=== PATIENT | male | born 1960 | race Caucasian/White ===

== ENCOUNTER → 2018-12-07 14:25 | Outpatient (CLI) | payer MEDICARE, SELFPAY ==
[2018-12-07 15:33] LABS: Absolute Lymphocyte Count 1.32 X10^3/ul (0.83-4.51); Absolute Neutrophil Count 1.6 X10^3/uL (2.0-7.7); Basophil# 0.03 X10^3/uL; Basophil% 0.9 % (0-1); Eosinophil# 0.05 X10^3/uL; Eosinophils% 1.5 % (0-5); Hemoglobin 12.9 g/dl (13.0-16.5); Lymphocyte # 1.32 X10^3/ul (4.0); Lymphocyte % 39.2 % (19-41); Mean Corp Hgb Conc 33.1 g/gl (32-36); Mean Corpuscular Hgb 29.7 pg (27.0-32.0); Mean Corpuscular Volume 89.7 fL (80-94); Mean Platelet Vol. 10.5 fl (6.2-12.0); Monocyte% 11.9 % (0-10); Neutrophil # 1.57 X10^3/uL (2.7-7.7); Neutrophil % 46.5 % (47-70); Platelet Count 216 K/mm3 (150-450); RBC Distribution Width CV 13.4 % (11.6-14.6); RBC Distribution Width SD 43.7 fl (35.1-43.9); Red Blood Count 4.35 M/mm3 (4.6-6.2); White Blood Count 3.4 K/mm3 (4.4-11.0)
[2018-12-07 15:36] LABS: POSITIVE COUNT NO; POSITIVE DIFFERENTIAL NO; POSITIVE MORPHOLOGY NO
[2018-12-07 16:04] LABS: ALB/GLOB Ratio 1.3 RATIO (0.9-2.4); AST(SGOT) 21 U/L (15-37); Alanine Aminotransfer ALT/SGPT 26 U/L (16-61); Albumin, Serum 3.6 g/dL (3.2-5.0); Alkaline Phosphatase 71 U/L (45-117); Anion Gap 11 (5-15); BUN 16 mg/dL (7-18); BUN/Creat Ratio 18.3 RATIO (10-20); Calcium,Total 8.4 mg/dL (8.5-10.1); Chloride 111 mmol/L (98-107); Creatinine, Serum 0.87 mg/dL (0.70-1.30); EST Glomerular Filtration Rate 95 mL/min (>60); Est Glom Filt Rate - Afr Amer 115 mL/min (>60); Globulin 2.7 g/dL (2.2-4.2); Glucose 147 mg/dL (74-106); Potassium 3.8 mmol/L (3.5-5.1); Protein, Total 6.3 g/dL (6.4-8.2); Sodium Level 143 mmol/L (136-145)
== END ==
PROVIDERS: Family Provider Family Medicine; PCP Family Medicine; Referring Provider Internal Medicine Rheumatology; Visit Provider Internal Medicine Rheumatology
DX: M06.09 Rheumatoid arthritis without rheumatoid factor, multiple sites (principal); Z79.899 Other long term (current) drug therapy; M79.7 Fibromyalgia; M17.0 Bilateral primary osteoarthritis of knee; M21.40 Flat foot [pes planus] (acquired), unspecified foot; I10 Essential (primary) hypertension; G47.33 Obstructive sleep apnea (adult) (pediatric); E78.5 Hyperlipidemia, unspecified; E11.9 Type 2 diabetes mellitus without complications; M18.0 Bilateral primary osteoarthritis of first carpometacarpal joints
CPT/HCPCS: 36415; 80053; 85025

== ENCOUNTER → 2021-03-09 16:01 | Outpatient (CLI) | payer MEDICARE, SELFPAY ==
[2021-03-09 17:40] LABS: Absolute Lymphocyte Count 1.64 X10^3/uL (0.83-4.51); Absolute Neutrophil Count 1.9 X10^3/uL (2.0-7.7); Basophil# 0.02 X10^3/uL; Basophil% 0.5 % (0-1); Eosinophil# 0.03 X10^3/uL; Eosinophils% 0.7 % (0-5); Hematocrit 41.4 % (40-54); Hemoglobin 12.9 g/dL (13.0-16.5); Lymphocyte # 1.64 X10^3/ul (0.83-4.51); Lymphocyte % 40.6 % (19-41); Mean Corp Hgb Conc 31.2 g/dL (32-36); Mean Corpuscular Hgb 26.2 pg (27.0-32.0); Mean Platelet Vol. 11.2 fl (6.2-12.0); Monocyte# 0.41 X10^3/uL; Monocyte% 10.1 % (0-10); NRBC Flagged by Analyzer 0 % (0-5); Neutrophil # 1.94 X10^3/uL (2.7-7.7); Neutrophil % 48.1 % (47-70); Platelet Count 145 K/mm3 (150-450); RBC Distribution Width CV 17.5 % (11.6-14.6); RBC Distribution Width SD 53.8 fl (35.1-43.9); Red Blood Count 4.93 M/mm3 (4.6-6.2)
[2021-03-09 18:20] LABS: ALB/GLOB Ratio 1.3 RATIO (0.9-2.4); AST(SGOT) 19 U/L (15-37); Alanine Aminotransfer ALT/SGPT 21 U/L (16-61); Albumin, Serum 3.5 g/dL (3.2-5.0); Alkaline Phosphatase 52 U/L (45-117); Anion Gap 5 (5-15); BUN 13 mg/dL (7-18); BUN/Creat Ratio 18.6 RATIO (10-20); Calcium,Total 8.6 mg/dL (8.5-10.1); Chloride 110 mmol/L (98-107); EST Glomerular Filtration Rate 121 mL/min (>60); Est Glom Filt Rate - Afr Amer 147 mL/min (>60); Globulin 2.6 g/dL (2.2-4.2); Glucose 105 mg/dL (74-106); Protein, Total 6.1 g/dL (6.4-8.2); Sodium Level 141 mmol/L (136-145)
== END ==
PROVIDERS: PCP Family Medicine; Referring Provider Internal Medicine Rheumatology; Visit Provider Internal Medicine Rheumatology
DX: M06.09 Rheumatoid arthritis without rheumatoid factor, multiple sites (principal); Z79.899 Other long term (current) drug therapy; M79.7 Fibromyalgia; M17.0 Bilateral primary osteoarthritis of knee; M18.0 Bilateral primary osteoarthritis of first carpometacarpal joints
CPT/HCPCS: 36415; 80053; 85025

== ENCOUNTER 2021-05-28 20:31 | Inpatient (IN) | payer MEDICARE, SELFPAY ==
[2021-05-28 20:32] VITALS: BP 189/100; PULSE 102; RESP 18; TEMP 36.1; O2SAT 99; BMI 35.6
--- NOTE | 2021-05-28 22:36 | EDS_ITS ---
HPI History of Present Illness Chief Complaint: Substance Abuse Informant: patient and friend Onset/Context/Timing Onset: Today Context: Gradual Onset Timing: Continuous Quality: shaky, malaise, vomiting Location: all over Current Severity: Severe Maximum Severity: Severe Worsened by: nothing Relieved by: nothing Associated Symptoms Associated Symptoms: can't keep fluids down. abd cramping. Narrative Narrative: Patient has alcoholic he was in recovery for 2 years recently restarted drinking, heavily all week. Woke up this morning tremulous feeling like he was in withdrawal, started vomiting and unable to keep anything down, symptoms worsening throughout the day including lots of vomiting now dry heaves as he has nothing else to vomit. He wants to stop drinking. Denies any other substance use. No other recent illness. PFSH PFSH Medical History Alcoholism Chronic pain Diabetes Rheumatoid arthritis Sleep apnea Transgender Home Medications cholecalciferol (vitamin D3) [Vitamin D3] 10 mcg PO DAILY 05/28/21 [History Last Taken Unknown] dicyclomine 10 mg PO BID 05/28/21 [History Last Taken Unknown] duloxetine See Rx Instructions .ROUTE .COMPLEX 05/28/21 [History Last Taken Unknown] lisinopril 20 mg PO BID 05/28/21 [History Last Taken Unknown] zyohnwogjmzt-ssgqedow-drpbae [Centrum Silver] 1 tab PO DAILY 05/28/21 [History Last Taken Unknown] pantoprazole 40 mg PO DAILY 05/28/21 [History Last Taken Unknown] potassium 95 mg PO DAILY 05/28/21 [History Last Taken Unknown] prazosin 15 mg PO QHS 05/28/21 [History Last Taken Unknown] sucralfate 1 g PO 4X/DAY 05/28/21 [History Last Taken Unknown] testosterone cypionate See Rx Instructions .ROUTE .COMPLEX 05/28/21 [History Last Taken Unknown] upadacitinib [Rinvoq] 15 mg PO DAILY 05/28/21 [History Last Taken Unknown] Allergy/AdvReac Type Severity Reaction Status Date / Time No Known Allergies Allergy Verified 05/28/21 20:35 Social History (Updated 05/28/21 @ 22:[address] Dallin Green MD) Smoking Status: Never smoker alcohol intake: current alcohol intake frequency: 3 or more drinks per day ROS ROS ED Constitutional Constitutional ED: Reports malaise; Denies chills or fever(s) Eyes Eyes: Denies change in vision or diplopia ENT ENT ED: Denies rhinorrhea or sore throat Cardiovascular Cardiovascular: Denies chest pain or palpitations Respiratory/Chest Respiratory/Chest: Denies cough or dyspnea Gastrointestinal Gastrointestinal: Reports as per HPI, abdominal pain, nausea and vomiting; Denies diarrhea Genitourinary Genitourinary ED: Denies dysuria or hematuria Musculoskeletal Musculoskeletal: Denies back pain or neck pain Integumentary Denies abscess or rash Neurologic Neurologic: Denies headache(s), paresthesias or weakness Psychiatric Psychiatric: Reports as per HPI and anxiety; Denies confusion or suicidal thoughts EXAM Physical Exam Const Vital Signs: 05/28/21 20:32 05/28/21 23:07 05/29/21 00:00 Temperature 97 F L Temperature Source Temporal Pulse Rate 102 H 93 100 Respiratory Rate 18 23 H 21 H Blood Pressure 189/100 H 182/100 H 199/97 H Blood Pressure Mean 129 127 131 Pulse Ox 99 Oxygen Delivery Method Room Air Positive well nourished and well developed Constitutional Narrative: Tremulous no distress General Appearance ED: well developed and NAD HEENT Reports moist mucous membranes normocephalic and atraumatic Eyes PERRL and EOMs intact bilaterally Neck full ROM and supple Resp normal respiratory effort and clear to auscultation bilaterally Cardio regular rate, regular rhythm and no murmurs Rate: tachycardic GI non-tender and non-distended Auscultation: normoactive bowel sounds Palpation: soft Back/Spine no CVA tenderness General Back: other FROM Extremity normal to inspection General Extremety ED: Negative for edema, pulses abnormal or tenderness General Extremity: Negative for edema or pulses abnormal Neuro oriented x3, CN's II-XII intact bilaterally and no sensory deficits noted Sensorium / Orientation: awake and alert Motor Exam: strength 5/5 throughout Skin no rashes or lesions noted and no wounds MDM MDM MDM Narrative Medical decision making narrative: Patient was treated with IV fluids, Zofran, Ativan 2 mg, he feels and appears much better on reevaluation. Given his hypertension, alcohol withdrawal, and the possibility of developing DTs which he does not have at this time, admission is indicated. Discussed with hospitalist. Lab Data Attestation: I reviewed the patient's lab results. Labs: Laboratory Results - last 24 hr 05/28/21 05/28/21 05/28/21 22:00 23:30 23:30 WBC 8.5 RBC 4.99 Hgb 14.7 Hct 43.2 MCV 86.6 MCH 29.5 MCHC 34.0 RDW Std Deviation 41.1 RDW Coeff of Elieser 13.0 Plt Count 210 MPV 11.3 Immature Gran % (Auto) 0.200 Neut % (Auto) 87.7 H Lymph % (Auto) 6.1 L [place] % (Auto) 5.6 Eos % (Auto) 0.0 Baso % (Auto) 0.4 Absolute Neuts (auto) 7.4 Absolute Lymphs (auto) 0.52 L Nucleated RBC % 0 Differential Comment SCANNED Sodium 136 Potassium 4.7 Chloride 104 Carbon Dioxide 18.0 L Anion Gap 14 BUN 17 Creatinine 0.74 Estim Creat Clear Calc 79.93 Est GFR (MDRD) Af Amer 137 Est GFR (MDRD) Non-Af 113 BUN/Creatinine Ratio 22.8 H Glucose 164 H Calcium 8.9 Total Bilirubin 1.70 H AST 45 H ALT 37 Alkaline Phosphatase 73 Total Protein 7.6 Albumin 4.3 Globulin 3.3 Albumin/Globulin Ratio 1.3 Urine Opiates Screen NEGATIVE Urine Methadone Screen NEGATIVE Ur Barbiturates Screen NEGATIVE Ur Phencyclidine Scrn NEGATIVE Ur Amphetamines Screen NEGATIVE U Methamphetamin-MDMA NEGATIVE U Benzodiazepines Scrn NEGATIVE Urine Cocaine Screen NEGATIVE U Cannabinoids Screen NEGATIVE Ur Drug Screen Comment Ethyl Alcohol 05/28/21 23:30 WBC RBC Hgb Hct MCV MCH MCHC RDW Std Deviation RDW Coeff of Elieser Plt Count MPV Immature Gran % (Auto) Neut % (Auto) Lymph % (Auto) [place] % (Auto) Eos % (Auto) Baso % (Auto) Absolute Neuts (auto) Absolute Lymphs (auto) Nucleated RBC % Differential Comment Sodium Potassium Chloride Carbon Dioxide Anion Gap BUN Creatinine Estim Creat Clear Calc Est GFR (MDRD) Af Amer Est GFR (MDRD) Non-Af BUN/Creatinine Ratio Glucose Calcium Total Bilirubin AST ALT Alkaline Phosphatase Total Protein Albumin Globulin Albumin/Globulin Ratio Urine Opiates Screen Urine Methadone Screen Ur Barbiturates Screen Ur Phencyclidine Scrn Ur Amphetamines Screen U Methamphetamin-MDMA U Benzodiazepines Scrn Urine Cocaine Screen U Cannabinoids Screen Ur Drug Screen Comment Ethyl Alcohol 5.0 Discharge Plan Dx/Rx/DC Orders Clinical Impression: Alcohol withdrawal, Alcohol dependence Disposition Disposition: Acute Care Hospital [facility]
[2021-05-28 23:07] VITALS: BP 182/100; PULSE 93; RESP 23
[2021-05-28] MEDS: 0.9% Normal Saline 1,000 ML 999 ML IV (23:12)
[2021-05-28] MEDS: LORazepam 2 MG/ML Syringe IV (23:13)
[2021-05-28] MEDS: Ondansetron 4 MG/2 ML Vial IV (23:13)
[2021-05-28 23:36] LABS: Amphetamine Urine VISTA NEGATIVE (<1000 ng/mL); Barbiturate Urine VISTA NEGATIVE (< 200 ng/mL); Benzodiazepine Urine VISTA NEGATIVE (< 200 ng/mL); Cocaine Urine VISTA NEGATIVE (< 300 ng/mL); Ecstacy Urine VISTA NEGATIVE (< 500 ng/mL); Methadone Urine VISTA NEGATIVE (< 300 ng/mL); PCP Urine VISTA NEGATIVE (< 25 ng/mL); THC Urine VISTA NEGATIVE (< 50 ng/mL); Vista UDS pH Range 5
[2021-05-28 23:43] LABS: Absolute Lymphocyte Count 0.52 X10^3/uL (0.83-4.51); Absolute Neutrophil Count 7.4 X10^3/uL (2.0-7.7); Basophil# 0.03 X10^3/uL; Basophil% 0.4 % (0-1); Hematocrit 43.2 % (40-54); Hemoglobin 14.7 g/dL (13.0-16.5); Lymphocyte # 0.52 X10^3/ul (0.83-4.51); Lymphocyte % 6.1 % (19-41); Mean Corpuscular Hgb 29.5 pg (27.0-32.0); Mean Corpuscular Volume 86.6 fL (80-94); Mean Platelet Vol. 11.3 fl (6.2-12.0); Monocyte# 0.47 X10^3/uL; Monocyte% 5.6 % (0-10); NRBC Flagged by Analyzer 0 % (0-5); Neutrophil # 7.42 X10^3/uL (2.7-7.7); Neutrophil % 87.7 % (47-70); POSITIVE DIFFERENTIAL YES; Platelet Count 210 K/mm3 (150-450); RBC Distribution Width SD 41.1 fl (35.1-43.9); Red Blood Count 4.99 M/mm3 (4.6-6.2); White Blood Count 8.5 K/mm3 (4.4-11.0)
[2021-05-28 23:47] LABS: Differential Indicated SCAN CRITERIA MET
[2021-05-29] VITALS (8 sets, daily range): BP systolic 101–199; BP diastolic 45–137; PULSE 62–103; RESP 16–24; TEMP 36.2–37.3; O2SAT 96–99; BMI 36.0
[2021-05-29 00:03] LABS: ALB/GLOB Ratio 1.3 RATIO (0.9-2.4); AST(SGOT) 45 U/L (15-37); Alanine Aminotransfer ALT/SGPT 37 U/L (16-61); Albumin, Serum 4.3 g/dL (3.2-5.0); Alkaline Phosphatase 73 U/L (45-117); Anion Gap 14 (5-15); BUN 17 mg/dL (7-18); BUN/Creat Ratio 22.8 RATIO (10-20); Calcium,Total 8.9 mg/dL (8.5-10.1); Chloride 104 mmol/L (98-107); Creatinine, Serum 0.74 mg/dL (0.70-1.30); EST Glomerular Filtration Rate 113 mL/min (>60); Est Glom Filt Rate - Afr Amer 137 mL/min (>60); Estimated Creatinine Clearance 79.93 ml/min; Globulin 3.3 g/dL (2.2-4.2); Glucose 164 mg/dL (74-106); Potassium 4.7 mmol/L (3.5-5.1); Protein, Total 7.6 g/dL (6.4-8.2); Sodium Level 136 mmol/L (136-145)
[2021-05-29 00:41] LABS: Differential Comment SCANNED
--- NOTE | 2021-05-29 01:42 | HP.PCM.HOS_ITS ---
HPI - General General Date of Admission: 05/29/21 HPI Narrative SIA BUTLER, is a 60 M who has been heavily drinking for last 3 days, finished 1 gallon of whiskey and then black out, pass out and then woke up today. Was feeling nauseated, burping, abdominal pain, restlessness and tremors. He started drinking alcohol in 40s and then he quit 2 years ago and was sober until last week when he started drinking alcohol. To me, patient states he did not vomit but has dry he coughs. Denies opioids, methamphetamine or other substance use. His other comorbidities include hypertension on lisinopril, diabetes mellitus type 2 not on antidiabetic medication, JOSE LUIS on CPAP, fibromyalgia, RA. Patient is on testosterone as he is male transgender. [facility] Medical History Alcoholism Chronic pain Diabetes Rheumatoid arthritis Sleep apnea Transgender Home Medications cholecalciferol (vitamin D3) [Vitamin D3] 10 mcg PO DAILY 05/28/21 [History Last Taken Unknown] dicyclomine 10 mg PO BID 05/28/21 [History Last Taken Unknown] duloxetine See Rx Instructions .ROUTE .COMPLEX 05/28/21 [History Last Taken Unknown] lisinopril 20 mg PO BID 05/28/21 [History Last Taken Unknown] wytnyebfcqjx-aicsoqeu-gybzuu [Centrum Silver] 1 tab PO DAILY 05/28/21 [History Last Taken Unknown] pantoprazole 40 mg PO DAILY 05/28/21 [History Last Taken Unknown] potassium 95 mg PO DAILY 05/28/21 [History Last Taken Unknown] prazosin 15 mg PO QHS 05/28/21 [History Last Taken Unknown] sucralfate 1 g PO 4X/DAY 05/28/21 [History Last Taken Unknown] testosterone cypionate See Rx Instructions .ROUTE .COMPLEX 05/28/21 [History Last Taken Unknown] upadacitinib [Rinvoq] 15 mg PO DAILY 05/28/21 [History Last Taken Unknown] Allergy/AdvReac Type Severity Reaction Status Date / Time No Known Allergies Allergy Verified 05/28/21 20:35 Social History Smoking Status: Never smoker alcohol intake: current alcohol intake frequency: 3 or more drinks per day ROS ROS Narrative Constitutional: Reports fatigue and weakness, passed out after drinking heavily. Not eating or drinking water for last 3 days HEENT: Reports systems reviewed and no addt'l complaints, except as documented Respiratory/Chest: Denies chest pain, shortness of breath at rest or with exertion Gastrointestinal: Nauseated, dry cramps. Denies coffee ground emesis, hematemesis or vomiting Genitourinary: Denies burning urination or new urinary tract symptoms. Dark color urine. Musculoskeletal: Reports joint pain and limited range of motion Neurologic: Denies seizure-like activity skin: No ulcer. No rash Endocrinology: Reports systems reviewed and no addt'l complaints, except as do cumented Hematologic/Lymphatic: Reports systems reviewed and no addt'l complaints, except as documented Rest 12 ROS are negative except as mentioned in HPI Vital Signs Vital Signs Vital Signs: 05/28/21 20:32 05/28/21 23:07 05/29/21 00:00 Temperature 97 F L Temperature Source Temporal Pulse Rate 102 H 93 100 Respiratory Rate 18 23 H 21 H Blood Pressure 189/100 H 182/100 H 199/97 H Blood Pressure Mean 129 127 131 Pulse Ox 99 Oxygen Delivery Method Room Air 05/29/21 01:06 Temperature 99.1 F Temperature Source Temporal Pulse Rate 103 H Respiratory Rate 24 H Blood Pressure 166/137 H Blood Pressure Mean 146 Pulse Ox 96 Oxygen Delivery Method Room Air Weight Weight: 195 lb Body Mass Index (BMI) 35.6 Physical Exam Narrative General: Alert, Oriented x3, Cooperative HEENT: Atraumatic, PERRLA, EOMI, Normocephalic Oral: No Gingival or Mucosal Lesions/ Ulcerations Neck: Supple, No JVD, Negative Carotid Bruits Lungs: Air entry equal in bilateral lung bases. No crepitation/rhonchi Cardiovascular: Regular rate, Regular Rhythm, Normal S1, Normal S2, No murmurs Abdomen: Bowel Sounds Present, Soft, Non Tender, Non-Distended. Midline scar paola of transgender surgery. : No renal angle tenderness. No suprapubic tenderness. Extremities: No edema, Capillary Refill Less than 3 Seconds. Mild tremors Skin: No rashes, No breakdown Musculoskeletal: No Tenderness to Palpation of Joints or Extremities Neurological: Cranial nerves II-XII grossly intact, DTR 2+/4 and Symmetrical, Neuro grossly intact Psych/Mental Status: Labile affect Results Lab / Micro Data Result Diagrams: 05/28/21 23:30 05/28/21 23:30 Labs: Laboratory Results - last 24 hr 05/28/21 22:00: Urine Opiates Screen NEGATIVE, Urine Methadone Screen NEGATIVE, Ur Barbiturates Screen NEGATIVE, Ur Phencyclidine Scrn NEGATIVE, Ur Amphetamines Screen NEGATIVE, U Methamphetamin-MDMA NEGATIVE, U Benzodiazepines Scrn NEGATIVE, Urine Cocaine Screen NEGATIVE, U Cannabinoids Screen NEGATIVE, Ur Drug Screen Comment 05/28/21 23:30: WBC 8.5, RBC 4.99, Hgb 14.7, Hct 43.2, MCV 86.6, MCH 29.5, MCHC 34.0, RDW Std Deviation 41.1, RDW Coeff of Elieser 13.0, Plt Count 210, MPV 11.3, I mmature Gran % (Auto) 0.200, Neut % (Auto) 87.7 H, Lymph % (Auto) 6.1 L, [place] % (Auto) 5.6, Eos % (Auto) 0.0, Baso % (Auto) 0.4, Absolute Neuts (auto) 7.4, Absolute Lymphs (auto) 0.52 L, Nucleated RBC % 0, Differential Comment SCANNED 05/28/21 23:30: Sodium 136, Potassium 4.7, Chloride 104, Carbon Dioxide 18.0 L, Anion Gap 14, BUN 17, Creatinine 0.74, Estim Creat Clear Calc 79.93, Est GFR (MDRD) Af Amer 137, Est GFR (MDRD) Non-Af 113, BUN/Creatinine Ratio 22.8 H, Glucose 164 H, Calcium 8.9, Total Bilirubin 1.70 H, AST 45 H, ALT 37, Alkaline Phosphatase 73, Total Protein 7.6, Albumin 4.3, Globulin 3.3, Albumin/Globulin Ratio 1.3 05/28/21 23:30: Ethyl Alcohol 5.0 Assessment & Plan Assessment/Plan (1) Alcohol withdrawal: QUALIFIERS: Complication of substance-induced condition: uncomplicated Qualified Code(s): F10.230 - Alcohol dependence with withdrawal, uncomplicated PLAN: This 60-year-old gentleman is being admitted for acute alcohol withdrawal syndrome. 1. Acute alcohol withdrawal syndrome: Patient denies prior history of withdrawal seizure, delusion, hallucination. Patient being admitted on MedSurg floor. On phenobarbital based other adjunctive medications for medical stabilization. Consult 184 rehab plan. 2. Hypertension, uncontrolled: Due to noncompliance. Patient not taking lisinopril for last 1 week. Resume lisinopril. Clonidine 0.2 mg ordered in ED. Monitor blood pressure and titrate medications as required. 3. Diabetes mellitus type 2: Accu-Chek before meals and at bedtime and cover with Humalog sliding scale. Glucose 164 in BMP. 4. JOSE LUIS on CPAP Other comorbidities include RA, fibromyalgia and obesity grade 1: Patient BMI is 35.7 Kd per meter square. Home medication reconciliation done. VTE prophylaxis: Moderate risk. Lovenox 40 mg subcu daily CODE STATUS: Full code. Charges/Coding Visit Charges Inpatient E&M: 55701 Init Hosp L3
[2021-05-29 02:04] LABS: Amylase 47 U/L (25-115); Lipase 124 U/L (73-393)
[2021-05-29] MEDS: cloNIDine HCl 0.2 MG Tablet PO (02:19)
[2021-05-29] MEDS: Lactated Ringers 1,000 ML 125 ML IV (02:20)
[2021-05-29 02:23] LABS: International Normalized Ratio 1.1; Prothrombin Time (Protime)PT. 13.6 SECONDS (11.7-14.9)
[2021-05-29] MEDS: Phenobarbital 32.4 MG Tablet 64.8 MG PO ×6 (02:29→22:44)
[2021-05-29] MEDS: Lisinopril 20 MG Tablet PO ×3 (02:29→21:15)
[2021-05-29] MEDS: Pantoprazole Sodium 40 MG Tablet PO ×2 (02:29→08:46)
[2021-05-29] MEDS: 0.9% Saline Lock 10 ML Syringe IV (02:30)
[2021-05-29] MEDS: Sucralfate 1 GM Tablet PO ×4 (06:16→21:15)
[2021-05-29] MEDS: Thiamine Hydrochloride 100 MG Tablet PO (08:46)
[2021-05-29] MEDS: Enoxaparin 40 MG/0.4 ML Syringe SC (08:46)
[2021-05-29] MEDS: Folic Acid 1 MG Tablet PO (08:46)
--- NOTE | 2021-05-29 11:32 | PCM.PN.HOSP ---
Subjective Subjective Patient is a 60-year-old gentleman with history of chronic alcohol dependence who presented to the emergency department wanting to detox Objective Data Objective Data Vital Signs: Vital Signs Temp Pulse Resp BP Pulse Ox 97.8 F 82 16 101/45 L 99 05/29/21 08:43 05/29/21 08:43 05/29/21 08:43 05/29/21 08:43 05/29/21 08:43 Oxygen Delivery Method Room Air Weight: 89.4 kg Body Mass Index (BMI) 36.0 Intake & Output: Intake and Output for Last 24 Hours 05/27/21 05/28/21 05/29/21 23:59 23:59 23:59 Intake Total 2400 / 2400 Balance 2400 / 2400 Lab / Micro Data Result Diagrams: 05/28/21 23:30 05/28/21 23:30 Labs: Laboratory Results - last 24 hr 05/28/21 22:00: Urine Opiates Screen NEGATIVE, Urine Methadone Screen NEGATIVE, Ur Barbiturates Screen NEGATIVE, Ur Phencyclidine Scrn NEGATIVE, Ur Amphetamines Screen NEGATIVE, U Methamphetamin-MDMA NEGATIVE, U Benzodiazepines Scrn NEGATIVE, Urine Cocaine Screen NEGATIVE, U Cannabinoids Screen NEGATIVE, Ur Drug Screen Comment 05/28/21 23:30: WBC 8.5, RBC 4.99, Hgb 14.7, Hct 43.2, MCV 86.6, MCH 29.5, MCHC 34.0, RDW Std Deviation 41.1, RDW Coeff of Elieser 13.0, Plt Count 210, MPV 11.3, Immature Gran % (Auto) 0.200, Neut % (Auto) 87.7 H, Lymph % (Auto) 6.1 L, [place] % (Auto) 5.6, Eos % (Auto) 0.0, Baso % (Auto) 0.4, Absolute Neuts (auto) 7.4, Absolute Lymphs (auto) 0.52 L, Nucleated RBC % 0, Differential Comment SCANNED 05/28/21 23:30: Sodium 136, Potassium 4.7, Chloride 104, Carbon Dioxide 18.0 L, Anion Gap 14, BUN 17, Creatinine 0.74, Estim Creat Clear Calc 79.93, Est GFR (MDRD) Af Amer 137, Est GFR (MDRD) Non-Af 113, BUN/Creatinine Ratio 22.8 H, Glucose 164 H, Calcium 8.9, Total Bilirubin 1.70 H, AST 45 H, ALT 37, Alkaline Phosphatase 73, Total Protein 7.6, Albumin 4.3, Globulin 3.3, Albumin/Globulin Ratio 1.3 05/28/21 23:30: Ethyl Alcohol 5.0 05/28/21 23:30: Amylase 47, Lipase 124 05/29/21 02:00: PT 13.6, INR 1.1 Physical Exam Narrative GENERAL: cooperative HEENT: Atraumatic; EYES; Anicteric, Normal Conjunctiva NECK; supple, normal thyroid, RESPIRATORY: Diminished to auscultation CARDIOVASCULAR: Regular S1 S2, GI: soft, normoactive bowel sounds, : No Renal angle tenderness; EXTREMITIES: No edema, no clubbing, MUSCULOSKELETAL: no muscle waisting NEURO: Awake; no lateralizing signs. SKIN: No Rash PSYCH; Flat affect Assessment & Plan Assessment/Plan (1) Alcohol withdrawal: QUALIFIERS: Complication of substance-induced condition: uncomplicated Qualified Code(s): F10.230 - Alcohol dependence with withdrawal, uncomplicated PLAN: Patient is a 60-year-old gentleman with history of chronic alcohol dependence who presented to the emergency department wanting to detox 1. Acute alcohol withdrawal ?Admitted to regular nursing floor for medical stabilization using phenobarb taper 2. Acute hypertensive urgency ?Patient blood pressure was markedly elevated on admission due to noncompliance with therapy. Home medications resumed patient blood pressure has since improved 3. Reported history of diabetes ?Patient currently not on any meds 4. Rheumatoid arthritis ?Patient is on upadacitinib 5. Obstructive sleep apnea ?CPAP at night 6. Obesity with BMI of 36 ?Weight loss advised 7. DVT prophylaxis - On enoxaparin 8. Fibromyalgia ?Per history Charges/Coding Visit Charges Inpatient E&M: 04286 Subs Hosp L2
[2021-05-29] MEDS: Ondansetron 8 MG Tablet PO (14:40)
[2021-05-29] MEDS: Mag Hydrox/Al Hydrox/Simeth 30 ML UDC PO (17:21)
[2021-05-29] MEDS: Doxazosin 4 MG Tablet PO (21:15)
[2021-05-30 02:30] VITALS: BP 122/67; PULSE 84; RESP 16; TEMP 36.6; O2SAT 98
[2021-05-30] MEDS: Acetaminophen 500 MG Tablet PO (02:41)
[2021-05-30] MEDS: Phenobarbital 32.4 MG Tablet 64.8 MG PO ×6 (02:42→22:59)
[2021-05-30] MEDS: Mag Hydrox/Al Hydrox/Simeth 30 ML UDC PO ×3 (02:42→16:47)
[2021-05-30] MEDS: Sucralfate 1 GM Tablet PO ×4 (06:41→20:21)
--- NOTE | 2021-05-30 07:29 | PCM.PN.HOSP ---
Subjective Subjective Patient seen less tremulous compared to previous day Objective Data Objective Data Vital Signs: Vital Signs Temp Pulse Resp BP Pulse Ox 97.8 F 84 16 122/67 H 98 05/30/21 02:30 05/30/21 02:30 05/30/21 02:30 05/30/21 02:30 05/30/21 02:30 Oxygen Delivery Method Room Air Weight: 89.4 kg Body Mass Index (BMI) 36.0 Intake & Output: Intake and Output for Last 24 Hours 05/28/21 05/29/21 05/30/21 23:59 23:59 23:59 Intake Total 2840 / 2840 440 / 440 Balance 2840 / 2840 440 / 440 Lab / Micro Data Result Diagrams: 05/28/21 23:30 05/28/21 23:30 Physical Exam Narrative GENERAL: cooperative HEENT: Atraumatic; EYES; Anicteric, Normal Conjunctiva NECK; supple, normal thyroid, RESPIRATORY: Diminished to auscultation CARDIOVASCULAR: Regular S1 S2, GI: soft, normoactive bowel sounds, : No Renal angle tenderness; EXTREMITIES: No edema, no clubbing, MUSCULOSKELETAL: no muscle waisting NEURO: Awake; no lateralizing signs. SKIN: No Rash PSYCH; Flat affect Assessment & Plan Assessment/Plan (1) Alcohol withdrawal: QUALIFIERS: Complication of substance-induced condition: uncomplicated Qualified Code(s): F10.230 - Alcohol dependence with withdrawal, uncomplicated PLAN: Patient is a 60-year-old gentleman with history of chronic alcohol dependence who presented to the emergency department wanting to detox 1. Acute alcohol withdrawal ?Admitted to regular nursing floor for medical stabilization using phenobarb taper -05/30/2021;Patient seen less tremulous compared to previous day 2. Acute hypertensive urgency ?Patient blood pressure was markedly elevated on admission due to noncompliance with therapy. Home medications resumed patient blood pressure has since improved - 05/30/2021; patient blood pressure has since stabilized 3. Reported history of diabetes ?Patient currently not on any meds 4. Rheumatoid arthritis ?Patient is on upadacitinib 5. Obstructive sleep apnea ?CPAP at night 6. Obesity with BMI of 36 ?Weight loss advised 7. DVT prophylaxis - On enoxaparin 8. Fibromyalgia ?Per history Charges/Coding Visit Charges Inpatient E&M: 92981 Subs Hosp L2
[2021-05-30 09:10] VITALS: BP 118/84; PULSE 85; RESP 16; TEMP 36.6; O2SAT 98
[2021-05-30] MEDS: hydrOXYzine PAM 25 MG Capsule 50 MG PO (09:16)
[2021-05-30] MEDS: Thiamine Hydrochloride 100 MG Tablet PO (09:17)
[2021-05-30] MEDS: Enoxaparin 40 MG/0.4 ML Syringe SC (09:17)
[2021-05-30] MEDS: Lisinopril 20 MG Tablet PO ×2 (09:17→20:20)
[2021-05-30] MEDS: Senna Tablet 2 TABLET PO (09:17)
[2021-05-30] MEDS: Folic Acid 1 MG Tablet PO (09:17)
[2021-05-30] MEDS: Pantoprazole Sodium 40 MG Tablet PO (09:17)
[2021-05-30 15:15] VITALS: BP 138/74; PULSE 73; RESP 16; TEMP 36.7; O2SAT 100
--- NOTE | 2021-05-30 20:15 | EKG12_ITS ---
Test Reason : CP Blood Pressure : / mmHG Vent. Rate : 081 BPM Atrial Rate : 081 BPM P-R Int : 148 ms QRS Dur : 090 ms QT Int : 376 ms P-R-T Axes : 024 -08 021 degrees QTc Int : 436 ms Normal sinus rhythm with sinus arrhythmia Inferior infarct , age undetermined Abnormal ECG Confirmed by EDUIN MCLAUGHLIN, AYALA ([id number]), restaurant expeditor KRYSTIN IGLESIAS ([id number]) on 06/02/2021 10:53:54 AM Referred By: UNIQUE Confirmed By:AYALA DENNY MD
[2021-05-30] MEDS: Gabapentin 300 MG Capsule PO (20:18)
[2021-05-30] MEDS: DULoxetine Hcl 60 MG Capsule PO (20:20)
[2021-05-30] MEDS: Doxazosin 4 MG Tablet PO (20:21)
[2021-05-30] MEDS: 0.9% Saline Lock 10 ML Syringe IV (20:23)
[2021-05-30 21:00] VITALS: BP 152/60; PULSE 71; RESP 16; TEMP 36.6; O2SAT 96
[2021-05-31 02:44] VITALS: BP 102/62; PULSE 82; RESP 18; TEMP 36.6; O2SAT 96
[2021-05-31] MEDS: Phenobarbital 32.4 MG Tablet 64.8 MG PO ×3 (02:47→09:56)
[2021-05-31] MEDS: Sucralfate 1 GM Tablet PO ×2 (06:15→11:13)
[2021-05-31 09:51] VITALS: BP 100/58; PULSE 61; RESP 12; TEMP 36.5; O2SAT 96
[2021-05-31] MEDS: Enoxaparin 40 MG/0.4 ML Syringe SC (09:55)
[2021-05-31] MEDS: DULoxetine Hcl 30 MG Capsule PO (09:55)
[2021-05-31] MEDS: Thiamine Hydrochloride 100 MG Tablet PO (09:55)
[2021-05-31] MEDS: Folic Acid 1 MG Tablet PO (09:55)
[2021-05-31] MEDS: Pantoprazole Sodium 40 MG Tablet PO (09:56)
--- NOTE | 2021-05-31 11:20 | DCINST_ITS ---
Discharge Instructions Diet Discharge Diet: No restrictions Activity Discharge Activity: Return to Normal Activity Follow Up Care Test Results: Test results from this visit will be discussed in further detail at your follow-up appointment, if applicable. Discharge Plan Admission Admit Date/Time: 05/29/21 01:42 Primary Reason for Your Visit: Alcohol withdrawal Attending Provider: Gilson Alfonso Primary Care Provider: Kateryna Reyna Discharge Orders/Prescriptions Prescriptions: Continued sucralfate 1 gram Tablet 1 g PO 4X/DAY RF: 0 lisinopril 20 mg Tablet 20 mg PO BID RF: 0 prazosin 5 mg Capsule 15 mg PO QHS RF: 0 potassium 95 mg Tablet 95 mg PO DAILY RF: 0 pantoprazole 40 mg Tablet,Delayed Release (Dr/Ec) 40 mg PO DAILY RF: 0 testosterone cypionate 200 mg/mL oil See Rx Instructions .ROUTE .COMPLEX RF: 0 dicyclomine 10 mg Capsule 10 mg PO BID RF: 0 elozgdhofunk-gnyimzly-thqvay Tablet 1 tab PO DAILY RF: 0 cholecalciferol (vitamin D3) [Vitamin D3] 10 mcg (400 unit) Capsule 10 mcg PO DAILY RF: 0 duloxetine 30 mg Capsule,Delayed Release(Dr/Ec) See Rx Instructions .ROUTE .COMPLEX RF: 0 Rinvoq 15 mg Tablet Extended Release 24 Hr 15 mg PO DAILY RF: 0 Referrals / Follow Up: Kateryna Reyna MD [Primary Care Provider] - (routine follow up ) Disposition Disposition (needs filled in before D/C Order can be placed): Home, Self Care
--- NOTE | 2021-05-31 11:22 | PCM.DC.SUM ---
Providers Date of Admission: 05/29/21 Primary Care Physician: Dr. aKteryna Reyna MD Reason For Visit: ACUTE ALCOHOL WITHDRAWL SYNDROME Diagnosis Discharge Diagnosis (1) Alcohol withdrawal: Status: Acute Code(s): F10.239 - Alcohol dependence with withdrawal, unspecified Qualifiers: Complication of substance-induced condition: uncomplicated Qualified Code(s): F10.230 - Alcohol dependence with withdrawal, uncomplicated Medications at Discharge Home Medications Rinvoq 15 mg PO DAILY 05/28/21 cholecalciferol (vitamin D3) [Vitamin D3] 10 mcg PO DAILY 05/28/21 dicyclomine 10 mg PO BID 05/28/21 duloxetine See Rx Instructions .ROUTE .COMPLEX 05/28/21 lisinopril 20 mg PO BID 05/28/21 kxombbbtbhzs-yndirxzm-ivvbuk 1 tab PO DAILY 05/28/21 pantoprazole 40 mg PO DAILY 05/28/21 potassium 95 mg PO DAILY 05/28/21 prazosin 15 mg PO QHS 05/28/21 sucralfate 1 g PO 4X/DAY 05/28/21 testosterone cypionate See Rx Instructions .ROUTE .COMPLEX 05/28/21 Hospital Course Operations None Procedures None Summary of Care Provided Minutes Spent on Discharge: 22 Hospital Course: 60-year-old transitional male presents seeking treatment for alcohol withdrawal. Patient had been sober for 2 years and was drinking large quantities of alcohol for the past week. Patient was started on a phenobarbital taper and did well. Patient is feeling well today and patient will be following up with [facility] for further IOP treatment. Patient will be following up with [facility] on the . Physical Exam Const alert Resp normal respiratory effort, no use of accessory muscles and clear to auscultation bilaterally Cardio regular rate, regular rhythm, S1 normal heart sound and S2 normal heart sound Weight / BMI Weight Weight: 89.4 kg Body Mass Index (BMI) 36.0 ABG / Lab / Microbiology Data Result Diagrams: 05/28/21 23:30 05/28/21 23:30 D/C Instructions Discharge Diet: No restrictions Meaningful Use Info Meaningful Use Diagnoses (Choose all that apply): None applicable Discharge Plan Admission Admit Date/Time: 05/29/21 01:42 Primary Reason for Your Visit: Alcohol withdrawal Attending Provider: Gilson Alfonso Primary Care Provider: Kateryna Reyna Discharge Orders/Prescriptions Prescriptions: Continued sucralfate 1 gram Tablet 1 g PO 4X/DAY RF: 0 lisinopril 20 mg Tablet 20 mg PO BID RF: 0 prazosin 5 mg Capsule 15 mg PO QHS RF: 0 potassium 95 mg Tablet 95 mg PO DAILY RF: 0 pantoprazole 40 mg Tablet,Delayed Release (Dr/Ec) 40 mg PO DAILY RF: 0 testosterone cypionate 200 mg/mL oil See Rx Instructions .ROUTE .COMPLEX RF: 0 dicyclomine 10 mg Capsule 10 mg PO BID RF: 0 dmnsaaatfoxc-zadpyien-qhtycl Tablet 1 tab PO DAILY RF: 0 cholecalciferol (vitamin D3) [Vitamin D3] 10 mcg (400 unit) Capsule 10 mcg PO DAILY RF: 0 duloxetine 30 mg Capsule,Delayed Release(Dr/Ec) See Rx Instructions .ROUTE .COMPLEX RF: 0 Rinvoq 15 mg Tablet Extended Release 24 Hr 15 mg PO DAILY RF: 0 Referrals / Follow Up: Kateryna Reyna MD [Primary Care Provider] - (routine follow up ) Disposition Disposition (needs filled in before D/C Order can be placed): Home, Self Care Charges/Coding Visit Charges Inpatient E&M: 73512 Disch Hosp
--- NOTE | 2021-05-31 11:29 | PHA.DC.MR ---
Pharmacy Service has performed discharge medication reconciliation for this patient. The patient's discharge medication list was reviewed for discrepancies and discrepancies were resolved. Home Medications Rinvoq 15 mg PO DAILY 05/28/21 cholecalciferol (vitamin D3) [Vitamin D3] 10 mcg PO DAILY 05/28/21 dicyclomine 10 mg PO BID 05/28/21 duloxetine See Rx Instructions .ROUTE .COMPLEX 05/28/21 lisinopril 20 mg PO BID 05/28/21 dkitxyjiquzr-agpsfhlf-mmgrvq 1 tab PO DAILY 05/28/21 pantoprazole 40 mg PO DAILY 05/28/21 potassium 95 mg PO DAILY 05/28/21 prazosin 15 mg PO QHS 05/28/21 sucralfate 1 g PO 4X/DAY 05/28/21 testosterone cypionate See Rx Instructions .ROUTE .COMPLEX 05/28/21
--- NOTE | 2021-06-01 13:13 | CASEMGMT ---
RG ELISE Discharge Follow-up Phone Call: KELLY: 10 Strata: 3 Call Date: 05/31/21 Discharge Date: 05/30/21 Time of Call: [id number] Duration: 1 min Admitting Diagnosis: Acute Alcohol Withdrawal Syndrome RG ELISE attempted to complete follow-up phone call after recent hospitalization. No answer, voice message left with return contact information.
== END 2021-05-31 13:43 | disposition home or self-care (01) | DRG 897 ==
LOC: ED 22:59 → PCU 05-29 01:44
PROVIDERS: Admitting Provider Internal Medicine; Emergency Provider Emergency Medicine; PCP Family Medicine
DX: F10.230 Alcohol dependence with withdrawal, uncomplicated (principal); E11.9 Type 2 diabetes mellitus without complications; M06.9 Rheumatoid arthritis, unspecified; F64.9 Gender identity disorder, unspecified; G47.30 Sleep apnea, unspecified; I16.0 Hypertensive urgency; I10 Essential (primary) hypertension; F41.9 Anxiety disorder, unspecified; G89.29 Other chronic pain; G47.33 Obstructive sleep apnea (adult) (pediatric); Z91.14 Patient's other noncompliance with medication regimen; Z68.36 Body mass index [BMI] 36.0-36.9, adult; E66.9 Obesity, unspecified; M79.7 Fibromyalgia; Y90.0 Blood alcohol level of less than 20 mg/100 ml
CPT/HCPCS: 36415; 80053; 80307; 82077; 82150; 83690; 85025; 85610; 93005; 99285; J7030; J7120; A4216; J2405

== ENCOUNTER → 2023-03-10 | Outpatient (CLI) | payer MEDICARE, SELFPAY ==
[2023-03-10 17:33] LABS: Absolute Lymphocyte Count 2.27 X10^3/uL (0.83-4.51); Basophil# 0.02 X10^3/uL; Basophil% 0.4 % (0-1); Eosinophil# 0.07 X10^3/uL; Eosinophils% 1.5 % (0-5); Hematocrit 40.9 % (40-54); Hemoglobin 12.6 g/dL (13.0-16.5); Lymphocyte # 2.27 X10^3/ul (0.83-4.51); Lymphocyte % 47.1 % (19-41); Mean Corp Hgb Conc 30.8 g/dL (32-36); Mean Corpuscular Hgb 25.9 pg (27.0-32.0); Mean Platelet Vol. 11.4 fl (6.2-12.0); Monocyte# 0.43 X10^3/uL; Monocyte% 8.9 % (0-10); NRBC Flagged by Analyzer 0 % (0-5); Neutrophil # 2.02 X10^3/uL (2.7-7.7); Neutrophil % 41.9 % (47-70); Platelet Count 205 K/mm3 (150-450); RBC Distribution Width CV 14.6 % (11.6-14.6); RBC Distribution Width SD 44.1 fl (35.1-43.9); Red Blood Count 4.87 M/mm3 (4.6-6.2); White Blood Count 4.8 K/mm3 (4.4-11.0)
[2023-03-10 18:00] LABS: ALB/GLOB Ratio 1.4 RATIO (0.9-2.4); AST(SGOT) 24 U/L (15-37); Alanine Aminotransfer ALT/SGPT 31 U/L (16-61); Albumin, Serum 3.9 g/dL (3.2-5.0); Alkaline Phosphatase 62 U/L (45-117); Anion Gap 8 (5-15); BUN 12 mg/dL (7-18); BUN/Creat Ratio 17.7 RATIO (10-20); Calcium,Total 8.6 mg/dL (8.5-10.1); Chloride 110 mmol/L (98-107); Creatinine, Serum 0.68 mg/dL (0.70-1.30); EST Glomerular Filtration Rate 125 mL/min (>60); Est Glom Filt Rate - Afr Amer 151 mL/min (>60); Globulin 2.8 g/dL (2.2-4.2); Glucose 116 mg/dL (74-106); Protein, Total 6.7 g/dL (6.4-8.2); Sodium Level 143 mmol/L (136-145)
== END | disposition home or self-care (01) ==
LOC: MTLAB 15:12
PROVIDERS: PCP Family Medicine; Referring Provider Internal Medicine Rheumatology; Visit Provider Internal Medicine Rheumatology
DX: M06.09 Rheumatoid arthritis without rheumatoid factor, multiple sites (principal); Z79.899 Other long term (current) drug therapy; M79.7 Fibromyalgia
CPT/HCPCS: 36415; 80053; 85025

== ENCOUNTER → 2023-04-03 | Outpatient (CLI) | payer MEDICARE, SELFPAY ==
--- NOTE | 2023-04-03 16:46 | CT_ITS ---
EXAM: CT RIGHT LOWER EXTREMITY WITHOUT INTRAVENOUS CONTRAST CLINICAL INDICATION: UNILATERAL PRIMARY OSTEOARTHRITIS, RT KNEE TECHNIQUE: Helically acquired images were obtained of the right lower extremity without intravenous contrast. 2-D reformats were performed by the technologist. The = ( 19.25 ) mGy, DLP = ( 2306.67 ) mGycm This CT exam was performed using one or more of the following dose reduction techniques: automated exposure control, adjustment of the mA and/or kV according to patient size, and/or use of iterative reconstruction technique. COMPARISON: No relevant prior studies available. FINDINGS: BONES/JOINTS: Severe osteoarthrosis involving the knee is worse at the medial femorotibial compartment with 8 mm of lateral subluxation of the tibia relative to the femur. Mild to moderate osteoarthrosis involving the hip joint. Small amount of suprapatellar joint fluid present. Prominent plantar and small posterior calcaneal enthesophytes. Ankle mortise is intact. No acute or healing fracture or malalignment. No unusual lytic or sclerotic lesions of bone. No tibiotalar or posterior subtalar joint effusions. No osteochondral lesions at the tibiotalar articulation. SOFT TISSUES: Subcutaneous edema about the ankle. No radiopaque foreign body. No significant Mendoza''s cyst. Prominent peripheral vascular calcifications. Ventral abdominal wall hernia repair. OTHER FINDINGS: No organized fluid collections. CT/Extremity Lower without Contra IMPRESSION: Preoperative planning study showing severe tricompartmental osteoarthrosis of the knee with lateral subluxation of the tibia relative to the femur. Electronically Signed: Joel Garsia MD at 22:55 EDT ,
== END | disposition home or self-care (01) ==
LOC: CT 16:42
PROVIDERS: PCP Family Medicine; Referring Provider Orthopaedic Surgery; Visit Provider Orthopaedic Surgery
DX: M17.11 Unilateral primary osteoarthritis, right knee (principal); M25.561 Pain in right knee
CPT/HCPCS: 73700

== ENCOUNTER 2023-04-24 17:25 | Observation (INO) | payer MEDICARE, SELFPAY ==
--- NOTE | 2023-04-10 14:05 | EKG12_ITS ---
Test Reason : PRE OP Blood Pressure : / mmHG Vent. Rate : 067 BPM Atrial Rate : 067 BPM P-R Int : 162 ms QRS Dur : 084 ms QT Int : 370 ms P-R-T Axes : 018 -14 038 degrees QTc Int : 390 ms Normal sinus rhythm Inferior infarct , age undetermined Abnormal ECG Confirmed by RANI MCLAUGHLIN, ISAIAH ([id number]), film and video editor KRYSTIN IGLESIAS ([id number]) on 04/11/2023 9:16:06 AM Referred By: aJmes Judge Confirmed By:ISAIAH SARAVIA MD
--- NOTE | 2023-04-10 14:10 | RAD_ITS ---
STUDY: X-RAY CHEST REASON FOR EXAM: Male, 62 years old. Preoperative evaluation. TECHNIQUE: Frontal and lateral views of the chest. COMPARISON: June 2015. FINDINGS: The lungs are clear and expanded. There is no demonstrated pleural abnormality. Stable cardiomegaly. Normal mediastinum and alyssa. Normal visualized pulmonary arteries. Normal visualized aortic arch and descending thoracic aorta. Moderate thoracic spondylosis, unchanged. Normal visualized ribs, clavicles, and shoulders. No abnormality of the visualized soft tissue structures of the upper abdomen. RAD/Chest PA and Lateral IMPRESSION: Stable cardiomegaly with no acute or active cardiopulmonary disease. Electronically Signed: Bert Nava MD at 11:35 EDT ,
[2023-04-10 14:57] LABS: Magnesium 2.3 mg/dL (1.6-2.6)
[2023-04-24] VITALS (16 sets, daily range): BP systolic 108–139; BP diastolic 60–114; PULSE 82–98; RESP 16–18; TEMP 36.3–37.1; O2SAT 94–100; BMI 46.5
--- NOTE | 2023-04-24 | KNEE_PTH ---
PATIENT: SIA BUTLER LOC: [facility]3 U#:[id number] AGE/SX: 62/M ROOM: [facility] RE04/24/[address]: Dr. James Judge DO : 1960 BED: 1 DIS: 04/25/2023 SPEC #: [id number] RECD: 04/24/23 12:57 STATUS: SPENCER REFélix #: [id number] SVITLANA: 04/24/23 00:[address]: James Judge DEPT: SURGICAL PATHOLOGY RECD BY: Zia Saeed ENTERED: 04/24/23 12:57 SP TYPE: TOTAL KNEE OTHR DR: Dr. Kateryna Reyna MD Tissues: Knee, NOS Procedures: Decalcification bone/plaque Surgery Specimen Level IV HEADER OPERATION: ERAS total knee replacement robotic arm assist PRE-OP DIAGNOSIS: Grade IV osteoarthritis, right knee TISSUE SUBMITTED: Right knee bone and tissue MICROSCOPIC DIAGNOSIS Bone and soft tissue, right knee, total knee replacement/resection: Pieces of bone with degenerative osteoarthritic changes. SJ: 04/27/2023 MICROSCOPIC DESCRIPTION Slides are reviewed. GROSS DESCRIPTION Received is one container designated bone and soft tissue right knee. The specimen consists of multiple fragments of cardoza-yellow bone measuring in aggregate 11x 10 x 4 cm. No soft tissue is identified. A number of bony fragments contain articular surfaces consistent with tibial plateau and femoral condyle and displaying prominent osteophyte formation, eburnation and bone erosion. Kilnman sections are submitted in one cassette after decalcification. / SJ: 04/24/23 TC:5 CPT: 86421, 93895
[2023-04-24] MEDS: Lactated Ringers 1,000 ML 999 ML IV ×2 (08:35→12:35)
[2023-04-24] MEDS: Acetaminophen 500 MG Tablet 1000 MG PO ×3 (08:36→22:13)
[2023-04-24] MEDS: Gabapentin 600 MG Tablet PO (08:36)
[2023-04-24 09:16] LABS: Bedside Glucose 153 mg/dL (74-106)
[2023-04-24] MEDS: Cefazolin 2 GM in 0.9% Normal Saline 100 ML IV (10:05)
[2023-04-24] MEDS: dexAMETHasone 10 MG/ML Vial IV (10:10)
--- NOTE | 2023-04-24 11:22 | PCM.OPRPT ---
Report of Operation Date of Procedure: 04/24/23 Pre-Operative Diagnosis: OA right knee Post-Operative Diagnosis: same Surgery/Procedure Performed:: Right TKR Description of Surgical Findings:: Report of Operation Date of Procedure: 04/24/2023 Preoperative Diagnosis: [right ] knee primary osteoarthritis Postoperative Diagnosis: [right ] knee primary osteoarthritis Operation: Robotic Assisted Knee Total Arthroplasty, [right ] knee Surgeon: Dr James Judge DO Motocross Racer: Bert Deluna PA-C Anesthesia: spinal Anesthesiologist: Richard Sorto M.D. Findings: Stable knee with good patella tracking Specimen(s): Bony cuts Complications: No intraoperative complications Estimated Blood Loss: 30cc IV Fluids: 1000 cc crystalline Implants Used: 1. Isai Triathlon size 2 CR press-fit femur 2. Isai Triathlon size 2 tibia 3. 32 mm patella 4. 10 mm CS polyethylene Brief History Operative Indications: [ (62 y/o male) ] with history of [ right ] knee osteoarthrosis with radiographic findings with loss of joint space, osteophyte formation and subchondral sclerosis. Failed conservative measures as mentioned in the H&P. Discussion of total knee arthroplasty as well as risk and benefits were discussed with the patient including but not limited to blood loss, DVTs, PEs, neurovascular damage, general risk of anesthesia including loss of life, and stiffness or instability were also discussed with the patient. Patient demonstrated understanding and was able to sign informed consent. Procedure: On the date of procedure, patient's [right ] lower extremity was marked in the preoperative area. The patient was then taken back to the operating room where that patient was placed on the table in the supine position. All bony prominences were identified and well-padded. Anesthesia assumed control of the C-spine and airway throughout the remainder of the procedure. A tourniquet was placed on the [ right ] upper thigh and the leg was prepped in a sterile fashion. The surgeon then scrubbed at this time. Upon reentering the room, the [ right ] lower extremity was draped in a standard orthopedic fashion. A timeout was then called and everyone agreed upon the side, the site, the procedure to be performed, patient's identity and antibiotics given. Esmarch bandage was used to exsanguinate the extremity and the tourniquet was placed up to 300 mmHg with the knee in flexion. A midline skin incision was made and a sharp dissection was taken down through skin, subcutaneous tissue and fat. The standard medial parapatellar incision was made and the patella was subluxed laterally. An appropriate deep MCL release was done and the fat pad was resected. Our attention was then directed to the patella. The patella was everted and a flat resection was made. The knee was then flexed up and 2 femoral pins were placed inside the incision and 2 tibial pins were placed outside the incision in the medial tibia bicortically. Once this was completed, the 2 checkpoints in the femur and tibia were placed. Knee was then flexed up and the bony landmarks were registered. Once the was completed, the knee taken through range of motion and manually stressed allowing us to plan for an appropriate tibial cut. The robotic arm was brought into the field sterilely and checkpoint and saw were registered. Based on the patient's deformity, the tibial cut was made in [2 degrees varus ]. At this time, the tensioner was then placed in the joint and ligament tension was checked at 90 degrees and full extension. Based on the patient's ligamentous tension, appropriate adjustments were made to the operative plan and ligament releases were done. Once we were happy with our operative plan with balanced flexion and extension gaps, our attention was directed to the femur. The robot was brought into the field sterilely and registered. Posterior condylar cuts, anterior chamfer cuts and anterior cuts were appropriately made for a [ size 2 ] femur. When these were completed, the saws were switched out in the distal femoral and posterior chamfer cuts were made. Protecting the soft tissue throughout this time. A [size 2 ] base plate was selected. The knee was flexed to 90 degrees and soft tissues and posterior osteophytes were removed from the joint. 40 cc of the periarticular injection was injected into the posterior medial corner of the joint. The appropriate trials were then placed on the femur and tibia. A trial polyethylene was trialed to ensure proper balancing and stability of the knee. The appropriate tibial internal rotation was then marked with a bovie. Our attention was then directed to the patella. The lug holes were drilled and the patella trial was placed. Patellar tracking was checked and deemed appropriate. Once we were happy, lug holes were drilled for the femur and trial components were removed. The tibia was subluxed and pinned into place and the keel was punched and drilled appropriately. Final components were verified and opened. The wound was copiously irrigated with normal saline. The components were impacted into place with the tibia, femur and finally the patella. The trial poly component was placed and the knee was placed in full extension. The tracking, alignment and balance were verified and a [ ] polyethylene component was placed. Once the final components were placed an Irrisept lavage was performed and the wound was copiously irrigated with normal saline solution and the periarticular injection was given. the wound was closed in a layer-baumann fashion using #1 vicryl interrupted sutures for the arthrotomy, 2-0 interrupted vicryl suture for the subcuticular layer and dieter for final skin closure. A sterile compressive dressing was then placed. The patient was then awakened from anesthesia, transferred to the rprimrose and transferred to the PACU for recovery. My physician assistant production editor was a vital part of this case. He was important in appropriate retraction during the case, and protection of soft tissues during bony cuts. His intimate knowledge of the case and my steps aided in safe and expedient completion of the procedure as well as appropriate position of the leg during the case. He was also vital in assisting with closure under my direct supervision. Due to the complexity of this case, robotic arm was used to assist in the surgery to improve accuracy and clinical outcomes. Post-op Plan: DVT ppx; ASA 81 mg BID, thigh high compression stockings Follow up: in office in 2 weeks for wound check PT: to start POD #0 at hospital, outpatient PT should be arranged. Preoperative antibiotic: Ancef 2 grams James Judge DO Surgeon: James Judge alcoholism worker: Bert Deluna Type of Anesthesia: Spinal Anesthesiologist: Richard Sorto Estimated Blood Loss (mL): 30 cc Fluids Replaced: 1000 cc crystalline Admit VTE Documentation VTE Present on Admission: No VTE Mechan Device Prophylaxis: SCD's and Thigh High AVRIL Hose VTE Pharm Prophylaxis ordered?: Yes
[2023-04-24] MEDS: JPS (Morphine 10mg/ml) OPERA.SITE (11:25)
--- NOTE | 2023-04-24 12:20 | RAD_ITS ---
STUDY: X-RAY - RIGHT KNEE REASON FOR EXAM: Male, 62 years old. Post op -- AP and Lateral x-ray of operative knee in PACU TECHNIQUE: 2 view(s) of the knee. COMPARISON: Comparison is made with prior study of February 24, 2016. FINDINGS: Normal visualized distal femur. Normal visualized proximal tibia and fibula. Normal proximal tibiofibular articulation. The patient is status post total knee replacement. There is good alignment. Postoperative soft tissue changes. RAD/Knee 1 or 2 Views IMPRESSION: Status post total knee replacement. There is good alignment. Postoperative soft tissue changes. Electronically Signed: Shahbaz Perales MD at 13:27 EDT ,
[2023-04-24] MEDS: oxyCODONE 5 MG Tablet PO ×2 (15:55→22:11)
[2023-04-24] MEDS: Sucralfate 1 GM Tablet PO (15:56)
[2023-04-24] MEDS: Cefazolin 1 GM/50 ML BAG IV (18:14)
[2023-04-24] MEDS: ARIPiprazole 2 MG Tablet PO (22:11)
[2023-04-24] MEDS: Senna/Docusate Sodium 1 Tablet 2 TABLET PO (22:12)
[2023-04-24] MEDS: traZODone 50 MG Tablet PO (22:13)
[2023-04-24] MEDS: DULoxetine Hcl 60 MG Capsule PO (22:14)
[2023-04-24] MEDS: APIXABAN 5 MG TABLET PO (22:14)
[2023-04-24] MEDS: 0.9% Saline Lock 10 ML Syringe IV (22:15)
[2023-04-24] MEDS: Gabapentin 300 MG Capsule PO (22:23)
[2023-04-25 02:23] VITALS: BP 153/80; PULSE 69; RESP 20; TEMP 36.3; O2SAT 94
[2023-04-25 02:30] VITALS: BMI 46.5
[2023-04-25] MEDS: oxyCODONE 5 MG Tablet PO ×3 (02:36→12:27)
[2023-04-25] MEDS: Cefazolin 1 GM/50 ML BAG IV ×2 (02:37→09:39)
[2023-04-25 06:10] VITALS: BMI 46.5
[2023-04-25 06:11] VITALS: BP 134/83; PULSE 86; RESP 18; TEMP 36.9; O2SAT 97
[2023-04-25] MEDS: Sucralfate 1 GM Tablet PO (06:18)
[2023-04-25] MEDS: Acetaminophen 500 MG Tablet 1000 MG PO (06:18)
[2023-04-25 07:19] LABS: Hematocrit 37.5 % (40-54); Mean Corpuscular Hgb 26.5 pg (27.0-32.0); Mean Platelet Vol. 11.5 fl (6.2-12.0); Platelet Count 151 K/mm3 (150-450); RBC Distribution Width CV 16.2 % (11.6-14.6); RBC Distribution Width SD 49.4 fl (35.1-43.9); Red Blood Count 4.52 M/mm3 (4.6-6.2); White Blood Count 12.5 K/mm3 (4.4-11.0)
--- NOTE | 2023-04-25 07:38 | PCM.PN.ORT ---
Subjective Subjective Patient lying in bed, awake. Patient states pain has been very well managed. Patient reports he was able to stand and walk during the night. Patient denies chest pain, shortness of breath, calf pain, nausea vomiting. Patient states she is ready to be discharged home to do his outpatient therapy Objective Data Objective Data Vital Signs: Vital Signs Temp Pulse Resp BP Pulse Ox O2 Del Method O2 Flow Rate 98.4 F 86 18 134/83 H 97 Room Air 2 04/25/23 06:11 04/25/23 06:11 04/25/23 06:11 04/25/23 06:11 04/25/23 06:11 04/25/23 06:11 04/24/23 14:03 FiO2 4 04/24/23 12:15 Oxygen Flow Rate (L/min) 2 Oxygen Delivery Method Room Air Weight: 108 kg Body Mass Index (BMI) 46.5 Intake & Output: Intake and Output for Last 24 Hours 04/23/23 04/24/23 04/25/23 23:59 23:59 23:59 Intake Total 2382 / 2882 750 / 750 Output Total 1400 / 1400 Balance 2382 / 2182 -650 / -650 Lab / Micro Data 04/25/23 06:30 04/25/23 06:30 Labs: Laboratory Results - last 24 hr 04/24/23 08:32: POC Glucose 153 H 04/25/23 06:30: WBC 12.5 H, RBC 4.52 L, Hgb 12.0 L, Hct 37.5 L, MCV 83.0, MCH 26.5 L, MCHC 32.0, RDW Std Deviation 49.4 H, RDW Coeff of Elieser 16.2 H, Plt Count 151, MPV 11.5 Micro: Microbiology 04/10/23 14:26 Swab (Method) Nasal Screen MRSA/MSSA - Final Radiography Diagnostic Testing: Radiology Impression Knee X-Ray 04/24/23 12:20 IMPRESSION: Status post total knee replacement. There is good alignment. Postoperative soft tissue changes. Electronically Signed: Shahbaz Perales MD at 13:27 EDT , Physical Exam Narrative Exam I found patient lying comfortably in bed awake. Patient in no respiratory distress speaking in full sentences. Patient has full motion of the upper extremities without limitations. The right knee dressing was clean dry intact. No calf tenderness. Neurovascular is otherwise intact. Const alert and oriented x3 HEENT normocephalic Eyes PERRL Resp normal respiratory effort Effort and Inspection: able to speak in complete sentences Extremity normal capillary refill Skin no rashes or lesions noted Neuro CN's II-XII intact bilaterally Psych mental status grossly normal and affect normal Assessment & Plan Assessment/Plan (1) S/P total knee arthroplasty: QUALIFIERS: Laterality: right Qualified Code(s): Z96.651 - Presence of right artificial knee joint PLAN: 1. Continue all pain medications as prescribed 2. Resume preoperative anticoagulation for postop DVT prophylaxis 3. Encourage incentive spirometry 4. Continue ice to knee, and elevation while sitting 5. Remove dressing in 6 days 6. Continue physical therapy outpatient as scheduled 7. Follow-up in 2 weeks as scheduled 8. Discharge home today after p.m. therapy
--- NOTE | 2023-04-25 07:42 | EX.PCM.DISCH ---
Discharge Instructions Diet Discharge Diet: No restrictions Activity Discharge Activity: May Shower (in 3 days) May shower in (days): 3 May resume sexual activity in: No Restrictions Ice area for (Minutes): 30 Weight Bearing Status: Weight bearing as tolerated Keep extremity elevated above heart level: Operative Extremity Dressing / Incision Call your doctor if your incision/area has: Continuous Slow Oozing, Sudden Increased Bleeding, Increased Pain/ Swelling, Increased Redness, Foul Smelling Discharge and Swelling at the incision site Call your doctor if you observe: Fever of 101 or Higher Change Dressing in: 6 days Follow Up Care Please Follow Up With: Bert Deluna PA-C When: 2 weeks as scheduled Test Results: Test results from this visit will be discussed in further detail at your follow-up appointment, if applicable. Discharge Plan Admission Admit Date/Time: 04/24/23 17:25 Primary Reason for Your Visit: Right total knee arthroplasty Attending Provider: James Judge Primary Care Provider: Kateryna Reyna Discharge Orders/Prescriptions Prescriptions: New acetaminophen 500 mg Tablet 1,000 mg PO Q8 30 Days Qty: 180 0RF oxycodone 5 mg Tablet 5 - 10 mg PO Q4H PRN PRN (Reason: Pain Score 4-10) 7 Days Qty: 60 0RF Continued sucralfate 1 gram Tablet 1 g PO BID prazosin 5 mg Capsule 15 mg PO QHS potassium 95 mg Tablet 95 mg PO DAILY pantoprazole 40 mg Tablet,Delayed Release (Dr/Ec) 40 mg PO DAILY uzasjtbkvctz-mmegczvz-ysfzob Tablet 1 tab PO DAILY cholecalciferol (vitamin D3) [Vitamin D3] 10 mcg (400 unit) Capsule 10 mcg PO DAILY duloxetine 30 mg Capsule,Delayed Release(Dr/Ec) 30 mg PO DAILY Rinvoq 15 mg Tablet Extended Release 24 Hr 15 mg PO DAILY trazodone 50 mg Tablet 50 mg PO QHS testosterone 100 mg/mL Suspension 100 mg IM .[id number] lorazepam 1 mg Tablet 1 mg PO DAILY PRN (Reason: Anxiety) duloxetine [Cymbalta] 60 mg Capsule,Delayed Release(Dr/Ec) 60 mg PO QHS gabapentin 300 mg Tablet 300 mg PO BID aripiprazole [Abilify] 2 mg Tablet 2 mg PO QHS Eliquis 5 mg Tablet 5 mg PO BID aspirin 325 mg Capsule 325 mg PO DAILY Referrals / Follow Up: Kateryna Reyna MD [Primary Care Provider] - Disposition Disposition (needs filled in before D/C Order can be placed): Home, Self Care
[2023-04-25 08:01] LABS: Anion Gap 4 (5-15); BUN 12 mg/dL (7-18); BUN/Creat Ratio 17.4 RATIO (10-20); Calcium,Total 8.6 mg/dL (8.5-10.1); Chloride 109 mmol/L (98-107); Creatinine, Serum 0.69 mg/dL (0.70-1.30); EST Glomerular Filtration Rate 123 mL/min (>60); Est Glom Filt Rate - Afr Amer 148 mL/min (>60); Estimated Creatinine Clearance 76.49 ml/min; Glucose 133 mg/dL (74-106); Potassium 4.8 mmol/L (3.5-5.1); Sodium Level 140 mmol/L (136-145)
[2023-04-25] MEDS: Aspirin 325 MG Tablet PO (08:03)
[2023-04-25] MEDS: Multivitamins,Ther W-Minerals Tablet 1 TABLET PO (08:03)
[2023-04-25] MEDS: APIXABAN 5 MG TABLET PO (09:40)
[2023-04-25] MEDS: Senna/Docusate Sodium 1 Tablet 2 TABLET PO (09:40)
[2023-04-25] MEDS: Pantoprazole Sodium 40 MG Tablet PO (09:40)
[2023-04-25] MEDS: DULoxetine Hcl 30 MG Capsule PO (09:40)
[2023-04-25] MEDS: Gabapentin 300 MG Capsule PO (09:43)
[2023-04-25 09:51] VITALS: O2SAT 98
--- NOTE | 2023-04-25 11:30 | CASEMGMT ---
Addendum entered by Junior Mckeon 04/26/23 19:16: 04/25 @ 11:30: Pt also sees the following specialists: Dr Ortega-urologist and Dr Acuña(?sp)-trimmer machine--both @ [facility] in [place]. Dr Sadler-technologist infectious disease Original Note: RN CM PROGRAM MANAGEMENT SPECIALIST CM to room to meet with patient for initial transition planning/care coordination assessment. RN CM introduced self and role at [facility].? Pt voices understanding and consents to assessment at this time.? Pt sitting up in chair in no distress at this time.? Pt is A/O at this time and answers all questions appropriately.?? Care providers, pharmacy, and demographics verified/updated at this time. PCP: Dr Kateryna Reyna Specialists: Dr Judge-ortho Preferred Pharmacy: [facility] Retail Insurance: [facility] [employer] Prescription Benefit:?Yes Living Will/HPOA:?Pt does not currently have LW/HCPOA and would like to complete. Lisa HICKS, made aware. LNOK: Sig other/Cookie singh. Pt has 2 children, ages 29 and 30. Pt states one is in [facility] and the other has intellectual disability. Living Arrangements: Lives w/Cookie in bi-level home w/ramp entrance. There are 5 steps to get up to main floor. Pt was ind w/ADL's. Cookie does home mngt tasks. Pt states he has worked w/steps w/therapy and feels comfortable doing them once home. Transportation: Pt states drives self and states no transportation concerns at this time.? Cookie also drives. DME: States has the following DME:?shower chair, walker. Pt also has a CPAP but has not worn it in a long time. ? Pt states no need for further DME at this time.? HHC/SNF: No hx of SNF. Has had HHC in the past. Pt is set up @ [facility] for OP therapy to begin tomorrow 04/26 @ 4:30 PM. He is aware of this appt. Pt wishes to return home and states has no concerns with going home at time of discharge.? CM to follow for any discharge planning/needs.? Pt voices no concerns/needs at this time.? Advised pt to ask for CM if any questions/concerns/needs arise.? Voices understanding. PLAN: ?Home w/OP therapy. Calixto CORNEJON RN CM
--- NOTE | 2023-04-25 12:44 | CASEMGMT ---
Social Work SW assisted pt in completing living will and health care POA naming his significant other Cookie Matthews. Copy placed on pt chart and original given to pt. MIKE Joyce
[2023-04-25 14:27] VITALS: BP 148/87; PULSE 92; RESP 16; TEMP 36.9; O2SAT 96
--- NOTE | 2023-04-25 15:20 | PHA.DC.MR.R ---
Pharmacy [place] Med Reconciliation Pharmacy Service has performed discharge medication reconciliation for this patient. Counselling materials were prepared, but patient left prior to attempted counselling. Prepared and reviewed by Rodger Swartz PharmD Candidate The patient's discharge medication list was reviewed for discrepancies and discrepancies were resolved. Medications at Discharge Home Medications cholecalciferol (vitamin D3) 10 mcg (400 unit) capsule (Vitamin D3) 10 mcg PO DAILY vitamin 05/28/21 duloxetine 30 mg capsule,delayed release 30 mg PO DAILY mental health 05/28/21 acpiwbyqojqx-imctgjao-xihhli tablet 1 tab PO DAILY vitamin 05/28/21 pantoprazole 40 mg tablet,delayed release 40 mg PO DAILY reflux 05/28/21 potassium 95 mg tablet 95 mg PO DAILY supplement 05/28/21 prazosin 5 mg capsule 15 mg PO QHS blood pressure 05/28/21 sucralfate 1 gram tablet 1 g PO BID GERD 05/28/21 upadacitinib 15 mg tablet,extended release 24 hr (Rinvoq) 15 mg PO DAILY RA 05/28/21 apixaban 5 mg tablet (Eliquis) 5 mg PO BID 04/05/23 aripiprazole 2 mg tablet (Abilify) 2 mg PO QHS 04/05/23 aspirin 325 mg capsule 325 mg PO DAILY 04/05/23 duloxetine 60 mg capsule,delayed release (Cymbalta) 60 mg PO QHS 04/05/23 gabapentin 300 mg tablet 300 mg PO BID 04/05/23 lorazepam 1 mg tablet 1 mg PO DAILY PRN Anxiety 04/05/23 testosterone 100 mg/mL intramuscular suspension 100 mg IM .[id number] 04/05/23 trazodone 50 mg tablet 50 mg PO QHS 04/05/23 acetaminophen 500 mg tablet 1,000 mg (2 x 500 mg) PO Q8 30 days #180 tabs 04/25/23 oxycodone 5 mg tablet 5 - 10 mg (1 - 2 x 5 mg) PO Q4H PRN PRN Pain Score 4-10 7 days #60 tabs 04/25/23
== END 2023-04-25 15:06 | disposition home or self-care (01) ==
LOC: SDC 17:31 → MS3 17:31
PROVIDERS: Anesthesiology; Admitting Provider Orthopaedic Surgery; PCP Family Medicine; Referring Provider Orthopaedic Surgery; Visit Provider Orthopaedic Surgery
PROC: 0SRC0JZ Replacement of Right Knee Joint with Synthetic Substitute, Open Approach (ICD-10-PCS; CPT 27447; principal; 2023-04-24 10:05)
DX: M17.11 Unilateral primary osteoarthritis, right knee (principal); M06.9 Rheumatoid arthritis, unspecified; K21.9 Gastro-esophageal reflux disease without esophagitis; I25.10 Atherosclerotic heart disease of native coronary artery without angina pectoris; M79.7 Fibromyalgia; I10 Essential (primary) hypertension; F32.A Depression, unspecified; G47.30 Sleep apnea, unspecified; Z79.899 Other long term (current) drug therapy; Z79.01 Long term (current) use of anticoagulants; F41.9 Anxiety disorder, unspecified; G89.29 Other chronic pain; R06.02 Shortness of breath; Z98.84 Bariatric surgery status
CPT/HCPCS: 27447; S2900; 01402; 64447; 36415; 71046; 73560; 80048; 82962; 83735; 85027; 87081; 88305; 88311; 93005; 94668; 96365; 96366; 97110; 97116; 97162; 97166; 97530; 99221; 99252; C1776; J7120; A4216; G0378; G0463; J2405; J3475